=== PATIENT | male | born 1960 | race Caucasian/White ===

== ENCOUNTER → 2018-03-11 06:12 | Outpatient (CLI) | payer OTHER, SELFPAY ==
--- NOTE | 2018-03-11 10:13 | STRESSREP ---
Stress Test Report Date: 03/11/2018 Procedure: Exercise tolerance test/imaging study Indications: Chest pain; CAD; PCI; CABG Consent: Per the patient Procedure: The patient exercised on a Mic protocol for 8 minutes completing Stage II and 2 minutes of Stage III achieving a peak heart rate of 176 bpm (107 % predicted maximal heart rate) with a peak blood pressure 140/76 mmHg and a peak MET capacity of 9 METs. The baseline ECG demonstrated normal sinus rhythm. The peak exercise ECG demonstrated no obvious ECG changes. There were rare PVCs and rare ventricular couplets during exercise and recovery. The functional capacity was considered good. There was no complaint of chest discomfort during exercise or recovery. The examination was discontinued secondary to leg discomfort. Impression: 1. Technically adequate (percent predicted maximal heart rate greater than 85%) exercise tolerance test 2. Peak exercise ECG demonstrated no obvious ECG changes 3. There were rare PVCs and ventricular couplets during exercise and recovery. 4. Nuclear images pending Myocardial perfusion imaging study: Technique: The patient was injected with 11.2 mCi of technetium 99m Cardiolite and subsequently rest SPECT Cardiolite nuclear imaging was obtained in the horizontal long, vertical long, and short axis views. The patient exercised on a Mic protocol for 8 minutes completing Stage II and 2 minutes of Stage III achieving a peak heart rate of 176 bpm (107 % predicted maximal heart rate) with a peak blood pressure 140/76 mmHg and a peak MET capacity of 9 METs. The patient was injected with 33.9 mCi of technetium 99m Cardiolite and subsequently stress SPECT Cardiolite nuclear imaging was obtained in the horizontal long, vertical long, and short axis views. A gated Cardiolite study at peak stress was obtained. Interpretation: Rest and stress SPECT Cardiolite nuclear imaging status post realignment, normalization, and attenuation correction, demonstrates the appearance of a small area of subtle diminished tracer uptake near the apical segments at rest which appear to improve and/or normalize following stress. Similar type findings on the resting and stress polar map images. There is end systolic thickening and brightening.. The gated Cardiolite study demonstrates myocardial thickening and inward wall motion. The reported LVEF is 62 %. Impression: 1. Rest and stress SPECT Cardiolite nuclear imaging demonstrate demonstrate myocardial perfusion changes appearing compatible if doing soft tissue attenuation/artifact with no myocardial perfusion changes consider diagnostic for associated stress-induced myocardial ischemia or previous myocardial injury/infarction. 2. The gated Cardiolite study reports an LVEF of 62 %. This note was generated with [employer] software. It may contain incorrect words, spelling, and punctuation that were not noted in checking the note before signing.
--- NOTE | 2018-03-11 10:23 | STRESSREP_ITS ---
Stress Test Report Date: 03/11/2018 Procedure: Exercise tolerance test/imaging study Indications: Chest pain; CAD; PCI; CABG Consent: Per the patient Procedure: The patient exercised on a Mic protocol for 8 minutes completing Stage II and 2 minutes of Stage III achieving a peak heart rate of 176 bpm (107 % predicted maximal heart rate) with a peak blood pressure 140/76 mmHg and a peak MET capacity of 9 METs. The baseline ECG demonstrated normal sinus rhythm. The peak exercise ECG demonstrated no obvious ECG changes. There were rare PVCs and rare ventricular couplets during exercise and recovery. The functional capacity was considered good. There was no complaint of chest discomfort during exercise or recovery. The examination was discontinued secondary to leg discomfort. Impression: 1. Technically adequate (percent predicted maximal heart rate greater than 85% ) exercise tolerance test 2. Peak exercise ECG demonstrated no obvious ECG changes 3. There were rare PVCs and ventricular couplets during exercise and recovery. 4. Nuclear images pending Myocardial perfusion imaging study: Technique: The patient was injected with 11.2 mCi of technetium 99m Cardiolite and subsequently rest SPECT Cardiolite nuclear imaging was obtained in the horizontal long, vertical long, and short axis views. The patient exercised on a Mic protocol for 8 minutes completing Stage II and 2 minutes of Stage III achieving a peak heart rate of 176 bpm (107 % predicted maximal heart rate) with a peak blood pressure 140/76 mmHg and a peak MET capacity of 9 METs. The patient was injected with 33.9 mCi of technetium 99m Cardiolite and subsequently stress SPECT Cardiolite nuclear imaging was obtained in the horizontal long, vertical long, and short axis views. A gated Cardiolite study at peak stress was obtained. Interpretation: Rest and stress SPECT Cardiolite nuclear imaging status post realignment, normalization, and attenuation correction, demonstrates the appearance of a small area of subtle diminished tracer uptake near the apical segments at rest which appear to improve and/or normalize following stress. Similar type findings on the resting and stress polar map images. There is end systolic thickening and brightening.. The gated Cardiolite study demonstrates myocardial thickening and inward wall motion. The reported LVEF is 62 %. Impression: 1. Rest and stress SPECT Cardiolite nuclear imaging demonstrate demonstrate myocardial perfusion changes appearing compatible if doing soft tissue attenuation/artifact with no myocardial perfusion changes consider diagnostic for associated stress-induced myocardial ischemia or previous myocardial injury/ infarction. 2. The gated Cardiolite study reports an LVEF of 62 %. This note was generated with [employer] software. It may contain incorrect words, spelling, and punctuation that were not noted in checking the note before signing.
== END ==
PROVIDERS: Family Provider Family Medicine; PCP Family Medicine; Visit Provider Nurse Practitioner Family
DX: I10 Essential (primary) hypertension (principal); I25.119 Atherosclerotic heart disease of native coronary artery with unspecified angina pectoris; Z95.5 Presence of coronary angioplasty implant and graft; Z95.1 Presence of aortocoronary bypass graft
CPT/HCPCS: 78452; 93017; A9500; A4216

== ENCOUNTER → 2018-06-04 13:42 | Outpatient (CLI) | payer OTHER, SELFPAY ==
--- NOTE | 2018-06-04 13:46 | RAD_ITS ---
STUDY: X-RAY - SOFT TISSUE NECK REASON FOR EXAM: Male, 57 years old. Stiff neck x 2 months TECHNIQUE: 2 view(s) of the neck were obtained. COMPARISON: None. FINDINGS: Normal visualized nasopharynx, oropharynx, hypopharynx. There are atherosclerotic vascular calcifications. Normal epiglottis. Normal visualized subglottic tracheal air column. Normal prevertebral soft tissue structures. There are degenerative changes of the cervical spine with cervical spondylosis. The soft tissue structures are unremarkable. RAD/Neck for Soft Tissue IMPRESSION: There are degenerative changes of the cervical spine with cervical spondylosis. Electronically Signed: Hayder Mckenna MD at 17:34 EDT , Service support ,
== END ==
PROVIDERS: Family Provider Family Medicine; PCP Family Medicine; Referring Provider Family Medicine; Visit Provider Family Medicine
DX: S16.1XXA Strain of muscle, fascia and tendon at neck level, initial encounter (principal)
CPT/HCPCS: 70360

== ENCOUNTER 2018-08-18 16:30 | Outpatient (RCR) | payer OTHER, SELFPAY ==
--- NOTE | 2018-06-16 17:32 | HP.PTEVAL_ITS ---
Patient's Visit Information SHAZIA JASON is a 57 year old M referred to Physical Therapy by Bradley Esteban with a diagnosis of NECK STRAIN. Date of Evaluation: 06/16/18 Physical Therapist: Robinson Yeung, PT, - Visit Plan Frequency: 2x /Week Duration: 4 Weeks Plan: MANUAL THERAPY STM, MOBS CERVICAL SPINE/THORACIC,POSTURAL EX'S,ICTX 14# - 20# X15MIN - Subjective Subjective: This 57 y/o male presents to physical therapy with neck strain .Patient developed cervical right occiput to right UT. Patient develped incidous onset of cervical pain about 8 weeks .[address] DR did x-rays and recommended PT. Symptoms worese with turning,extension,lifinh. Symptoms better with few adjustments.Denies HALL . Denies parathesia/tingling. Patient denioes nausea,tinnutus ,slight dizziness. Patient symptoms are affected from sleeping. Symptoms affect QOL and job demands. SOCAIL:. VOCATION: [facility] - Pain Right Neck Pain Intensity (Out of 10): 2 Pain Intensity Range: 7 - Objective POSTURE: mild foward posture ,head foward. NEURO: denies parathesia/tingling,reflexes C5-6-7, 3/3. AROM: BUE WFL. MMT: 4/5 grossly. CERVICAL ROM: flexion min loss,extension mod loss,lateral flexion ,rotation mod loss. extension mod loss retraction min loss with pain. PALAPTION: tender UT/OCCIPUT - Special Tests C/S Radiculapathy - Left Upper limb tension test: Negative C/S Radiculapathy - Right Upper limb tension test: Negative C/S Radiculapathy - Left Spurlings: Negative C/S Radiculapathy - Right Spurlings: Positive C/S Radiculapathy - Left Cervical distraction: Negative C/S Radiculapathy - Right Cervical distraction: Negative C/S Radiculapathy - Left Relief test: Negative C/S Radiculapathy - Right Relief test: Negative C/S Radiculapathy - Valsalva: Negative Sharp Kayla: Negative Vertebral Artery Test: Negative Alar Ligament Test: Negative - Goals Goal 1:: Independant with HEP. Goal Time Frame: 4-6 Weeks Goal 2:: Patient to be Independant with posture for ADL'S Goal Time Frame: 4-6 Weeks Goal 3:: Decrease cervical pain by 50% or greater to improve function with turning cervical spine. Goal Time Frame: 4-6 Weeks Goal 4:: Patient to improve cervical ROM fotr function of recovery with less pain Goal Time Frame: 4-6 Weeks Goal 5:: Patient to improve neck JUSTINA by 5 points or greater to improve function with QOL Goal Time Frame: 4-6 Weeks - Rehabilitation Potential Physical Therapy Diagnosis: This patient appears to have cervical lateral stenosis along with derrangement with pain with motion all planes ,affects ADLS and job demands,responded well with traction of c-spine thus benifit from skilled PT Rehabilitation Potential: Good - Anticipated Interventions Patient/Client Instruction: Educate patient on: Condition, Plan of Care For the Purpose of:: To decrease pain, To increase ROM, To improve muscle performance and motor function, To increase tolerance to activity/condition/position, To improve ability of physical actions for home/community/work/leisure, To improve health of tissue, To decrease soft tissue restriction, To increase flexibility/ROM, To improve ability to perform tasks related to life management Therapeutic Exercise to Include: Strength training, Postural training, Flexibilty training, Active ROM, Diana Exercises For the Purpose of:: To decrease pain, To increase ROM, To improve muscle performance and motor function, To decrease level of supervision to perform tasks, To improve gait and locomotor functions, To improve health of tissue, To decrease soft tissue restriction, To increase flexibility/ROM, To improve ability to perform tasks related to life management Manual Therapy Techniques to Include: Mobilization, Soft tissue mobilization Comment: CERVICAL SPINE For the Purpose of:: To decrease pain, To increase ROM, To improve nutrient delivery to tissue, To improve health of tissue, To decrease soft tissue re striction, To increase flexibility/ROM TENS: Yes IF ES: Yes Cryotherapy (ice pack, ice massage): Yes Thermo therapy (hot pack): Yes Ultrasound (thermal/non thermal): Yes For the Purpose of:: To decrease pain, To increase ROM, To improve nutrient deli very to tissue, To increase oxygenation perfusion, To improve health of tissue, To decrease soft tissue restriction Thank you for the opportunity to evaluate your patient. For Medicare and Medicare HMO plans, please review the plan of care and approve it. It will need to be FAXED BACK to us at [phone] for Medicare purposes. Please let me know if there are questions or concerns regarding this plan of care. Physician Signature: Date:
--- NOTE | 2018-08-18 17:11 | HP.PTDCSUM ---
HP - PT D/C Summary It has been my pleasure to treat SHAZIA JASON under orders from Bradley Esteban, for the diagnosis of NECK STRAIN for a total of 12 visit(s). Discharge Date: 08/18/18 Please see the following information for a summary of their discharge status. - Subjective Subjective: Doing bettt just stiffness - Pain Right Neck Pain Intensity (Out of 10): 1 - Overall Improvement % Improvement: 60 - Objective Objective/Function: POSTURE: MILD FOWARD HEAD. NEURO: INTACT. MMT: 5/5 BUE. CERVICAL ROM: FKLEXION MIN LOSS,LATERAL FLEXION /ROTATION ,MIN ,LOSS,EXTENSION MIN/MOD ;LOSS - Goals Goal 1:: Independant with HEP. Goal Progress: Goal Met Goal 2:: Patient to be Independant with posture for ADL'S Goal Progress: Goal Met Goal 3:: Decrease cervical pain by 50% or greater to improve function with turning cervical spine. Goal Progress: Goal Met Goal 4:: Patient to improve cervical ROM fotr function of recovery with less pain Goal Progress: Goal Met Goal 5:: Patient to improve neck JUSTINA by 5 points or greater to improve function with QOL Goal Progress: Goal Met - Plan Plan: D/C - D/C Information If there are questions or concerns regarding this patient's physical therapy, please feel free to call me at [phone]. Thank you for the referral of this patient. Sincerely, Robinson Yeung, PT,
== END 2018-08-18 19:00 | disposition home or self-care (01) ==
LOC: PT 16:30
PROVIDERS: Family Provider Family Medicine; PCP Family Medicine; Referring Provider Family Medicine; Visit Provider Family Medicine
DX: S16.1XXD Strain of muscle, fascia and tendon at neck level, subsequent encounter (principal)
CPT/HCPCS: 97012; 97035; 97162; 97530

== ENCOUNTER → 2019-02-11 | Outpatient (CLI) | payer OTHER, SELFPAY ==
[2019-02-11 10:05] VITALS: BMI 25.4
[2019-02-11 11:29] LABS: AST(SGOT) 34 U/L (15-37); Alanine Aminotransfer ALT/SGPT 52 U/L (16-61); Albumin, Serum 3.8 g/dL (3.2-5.0); Alkaline Phosphatase 83 U/L (45-117); Bilirubin, Direct 0.16 mg/dL (0.00-0.30); Cholesterol 186 mg/dL (200); Globulin 4.1 g/dL (2.2-4.2); High Density Lipoprotein 57 mg/dL; Protein, Total 7.9 g/dL (6.4-8.2); Triglycerides 68 mg/dL; Very Low Density Lipoprotein 14 mg/dL (5-40)
== END | disposition home or self-care (01) ==
LOC: LAB 10:45
PROVIDERS: Nurse Practitioner Family; Family Provider Family Medicine; PCP Family Medicine; Referring Provider Physician Assistant Medical; Visit Provider Physician Assistant Medical
DX: E78.5 Hyperlipidemia, unspecified (principal); Z79.899 Other long term (current) drug therapy; I25.10 Atherosclerotic heart disease of native coronary artery without angina pectoris; Z95.1 Presence of aortocoronary bypass graft; Z95.5 Presence of coronary angioplasty implant and graft
CPT/HCPCS: 36415; 80061; 80076

== ENCOUNTER → 2019-10-12 06:03 | Outpatient (CLI) | payer OTHER, SELFPAY ==
[2019-02-11 10:05] VITALS: BMI 25.4
[2019-10-12 08:10] LABS: Anion Gap 5 (5-15); BUN 22 mg/dL (7-18); BUN/Creat Ratio 23.6 RATIO (10-20); Calcium,Total 9.2 mg/dL (8.5-10.1); Chloride 108 mmol/L (98-107); Cholesterol 175 mg/dL (200); Creatinine, Serum 0.93 mg/dL (0.70-1.30); EST Glomerular Filtration Rate 89 mL/min (>60); Est Glom Filt Rate - Afr Amer 107 mL/min (>60); Glucose 89 mg/dL (74-106); High Density Lipoprotein 45 mg/dL; PSA,Total - Annual Screen 3.14 ng/mL (0.00-4.00); Potassium 4.2 mmol/L (3.5-5.1); Sodium Level 140 mmol/L (136-145); Triglycerides 114 mg/dL; Very Low Density Lipoprotein 23 mg/dL (5-40)
[2019-10-12 09:22] LABS: Vitamin D,25 Hydroxy 20.6 ng/mL (29.95-100.01)
== END ==
PROVIDERS: PCP Family Medicine; Referring Provider Family Medicine; Visit Provider Family Medicine
DX: Z00.00 Encounter for general adult medical examination without abnormal findings (principal)
CPT/HCPCS: 36415; 80048; 80061; 82306; 84153; G0103

== ENCOUNTER → 2020-11-09 10:15 | Outpatient (CLI) | payer OTHER, SELFPAY ==
[2019-10-13 13:14] VITALS: BMI 25.7
[2020-11-09 12:26] LABS: AST(SGOT) 25 U/L (15-37); Alanine Aminotransfer ALT/SGPT 50 U/L (16-61); Albumin, Serum 3.7 g/dL (3.2-5.0); Alkaline Phosphatase 84 U/L (45-117); Anion Gap 4 (5-15); BUN 21 mg/dL (7-18); BUN/Creat Ratio 20.8 RATIO (10-20); Calcium,Total 9.3 mg/dL (8.5-10.1); Chloride 106 mmol/L (98-107); Cholesterol 177 mg/dL (200); Creatinine, Serum 1.01 mg/dL (0.70-1.30); EST Glomerular Filtration Rate 80 mL/min (>60); Est Glom Filt Rate - Afr Amer 97 mL/min (>60); Globulin 3.7 g/dL (2.2-4.2); Glucose 90 mg/dL (74-106); High Density Lipoprotein 50 mg/dL; Potassium 4.5 mmol/L (3.5-5.1); Protein, Total 7.4 g/dL (6.4-8.2); Sodium Level 139 mmol/L (136-145); Triglycerides 75 mg/dL; Very Low Density Lipoprotein 15 mg/dL (5-40)
== END ==
PROVIDERS: PCP Family Medicine; Referring Provider Family Medicine; Visit Provider Family Medicine
DX: E78.5 Hyperlipidemia, unspecified (principal)
CPT/HCPCS: 36415; 80053; 80061

== ENCOUNTER → 2021-04-01 10:34 | Outpatient (CLI) | payer OTHER, SELFPAY ==
[2020-12-28 11:18] VITALS: BMI 25.8
--- NOTE | 2021-04-01 10:37 | RAD_ITS ---
STUDY: X-RAY - ABDOMEN/PELVIS REASON FOR EXAM: Male, 60 years old. ABD PAIN TECHNIQUE: AP supine and upright views of the abdomen and pelvis. COMPARISON: None. FINDINGS: Normal visualized lung bases. There is a moderate amount of colonic fecal material. There is no demonstrated free abdominal air. The visualized liver, spleen and kidneys are grossly normal in size and morphology. Normal soft tissue structures. There are diffuse degenerative changes of the visualized lumbar spine. Mild degree of dextro convex scoliosis. 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 Moderate amount of fecal material is seen in the colon. Electronically Signed: Yair Pillai MD at 22:02 EDT , Service support ,
== END ==
PROVIDERS: PCP Family Medicine; Referring Provider Family Medicine; Visit Provider Family Medicine
DX: R10.9 Unspecified abdominal pain (principal)
CPT/HCPCS: 74018

== ENCOUNTER → 2021-05-10 10:28 | Outpatient (CLI) | payer OTHER, SELFPAY ==
[2021-05-10 12:31] LABS: Anion Gap 3 (5-15); BUN 22 mg/dL (7-18); BUN/Creat Ratio 24.9 RATIO (10-20); Calcium,Total 9.2 mg/dL (8.5-10.1); Chloride 106 mmol/L (98-107); Cholesterol 174 mg/dL (200); Creatinine, Serum 0.88 mg/dL (0.70-1.30); EST Glomerular Filtration Rate 94 mL/min (>60); Est Glom Filt Rate - Afr Amer 113 mL/min (>60); Glucose 95 mg/dL (74-106); High Density Lipoprotein 55 mg/dL; PSA,Total - Annual Screen 3.75 ng/mL (0.00-4.00); Potassium 4.5 mmol/L (3.5-5.1); Sodium Level 139 mmol/L (136-145); Triglycerides 68 mg/dL; Very Low Density Lipoprotein 14 mg/dL (5-40)
== END ==
PROVIDERS: PCP Family Medicine; Referring Provider Family Medicine; Visit Provider Family Medicine
DX: Z00.00 Encounter for general adult medical examination without abnormal findings (principal); E78.5 Hyperlipidemia, unspecified
CPT/HCPCS: 36415; 80048; 80061; 84153; G0103

== ENCOUNTER → 2022-11-14 | Outpatient (CLI) | payer OTHER, SELFPAY ==
[2022-11-14 12:48] LABS: ALB/GLOB Ratio 1.1 RATIO (0.9-2.4); AST(SGOT) 30 U/L (15-37); Alanine Aminotransfer ALT/SGPT 57 U/L (16-61); Albumin, Serum 3.8 g/dL (3.2-5.0); Alkaline Phosphatase 80 U/L (45-117); Anion Gap 9 (5-15); BUN 21 mg/dL (7-18); BUN/Creat Ratio 23.1 RATIO (10-20); Calcium,Total 9.3 mg/dL (8.5-10.1); Chloride 103 mmol/L (98-107); Cholesterol 171 mg/dL (200); Creatinine, Serum 0.91 mg/dL (0.70-1.30); EST Glomerular Filtration Rate 90 mL/min (>60); Est Glom Filt Rate - Afr Amer 109 mL/min (>60); Globulin 3.6 g/dL (2.2-4.2); Glucose 86 mg/dL (74-106); High Density Lipoprotein 50 mg/dL; Potassium 4.5 mmol/L (3.5-5.1); Protein, Total 7.4 g/dL (6.4-8.2); Sodium Level 140 mmol/L (136-145); Triglycerides 72 mg/dL; Very Low Density Lipoprotein 14 mg/dL (5-40)
== END | disposition home or self-care (01) ==
LOC: MTLAB 10:27
PROVIDERS: PCP Family Medicine; Referring Provider Family Medicine; Visit Provider Family Medicine
DX: E78.5 Hyperlipidemia, unspecified (principal)
CPT/HCPCS: 36415; 80053; 80061

== ENCOUNTER → 2023-02-27 | Outpatient (CLI) | payer OTHER, SELFPAY ==
--- NOTE | 2023-02-27 10:26 | RAD_ITS ---
STUDY: X-RAY - ACUTE ABDOMINAL SERIES REASON FOR EXAM: Male, 62 years old. LEFT LOWER ABDOMINAL PAIN, HX IBS TECHNIQUE: Single view of the chest. Supine, and erect view(s) of the abdomen were obtained. COMPARISON: Abdominal x-ray dated April 01, 2021 FINDINGS: The lungs are clear and expanded. There is no demonstrated pleural abnormality. Sternal cerclage wires and vascular clips are present from a prior sternotomy and coronary artery bypass graft procedure (CABG). Normal heart size. Normal mediastinum and angela. Normal visualized pulmonary arteries. Normal visualized aortic arch and descending thoracic aorta. There are diffuse degenerative changes of the visualized thoracic spine. Normal visualized ribs, clavicles, and shoulders. There is a non-specific bowel gas pattern. The soft tissue structures of the abdomen and pelvis are unremarkable. Normal visualized osseous structures. RAD/Acute Abdomen Inc Chest IMPRESSION: Unremarkable x-ray examination of the chest, abdomen, and pelvis. Electronically Signed: Ammon Rodriguez MD at 12:02 EDT ,
== END | disposition home or self-care (01) ==
LOC: MTRAD 10:23
PROVIDERS: PCP Family Medicine; Referring Provider Family Medicine; Visit Provider Family Medicine
DX: R10.9 Unspecified abdominal pain (principal)
CPT/HCPCS: 74022

== ENCOUNTER → 2023-05-04 | Outpatient (CLI) | payer OTHER, SELFPAY ==
--- NOTE | 2023-05-04 14:00 | CT_ITS ---
STUDY: CT ABDOMEN AND PELVIS WITH CONTRAST REASON FOR EXAM: Male, 62 years old. DIVERTICULITIS OF LARGE INTESTINE WITHOUT PERFORAT RADIATION DOSAGE (If Supplied By Facility): CTDIvol = ( 10.47 ) mGy, DLP = ( 772.88 ) mGycm TECHNIQUE: Oral and amp; IV Readi-CAT and amp; 100mL Isovue-300 was administered. Transaxial images were obtained from the dome of the diaphragm to the symphysis pubis in the arterial, nephrographic and excretory phases. Multiplanar coronal and sagittal images were reformatted. Individualized Dose Optimization Techniques Were Used For This CT. COMPARISON: No prior examinations are available for comparison. FINDINGS: The visualized lung bases are unremarkable. Normal heart size. Status post median sternotomy. Coronary calcifications. Normal liver. Normal gallbladder and extrahepatic biliary system. Normal spleen. Normal pancreas. Normal bilateral adrenal glands. Probable small hiatal hernia. Normal in caliber small bowel loops. Sigmoid diverticulosis. No evidence of acute diverticulitis. The appendix is visualized and appears normal. There is diffuse atherosclerotic calcification of the abdominal aorta, without a demonstrated aneurysm. No retroperitoneal adenopathy. Nonspecific mild bilateral perinephric stranding. No evidence of hydronephrosis. Normal urinary bladder. Slightly prominent prostate. Normal abdominal wall. There are diffuse degenerative changes of the visualized lumbar spine. CT/Abdomen/Pelvis WITH Contrast IMPRESSION: 1. Diverticulosis without evidence of acute diverticulitis. 2. No focal acute inflammatory process. Electronically Signed: Kaden Lima MD at 23:11 EDT ,
[2023-05-04 14:17] LABS: EGFR FINGERSTICK > 60.0000 mL/min (>60)
== END | disposition home or self-care (01) ==
LOC: CT 13:43
PROVIDERS: PCP Family Medicine; Referring Provider Internal Medicine; Visit Provider Internal Medicine
DX: K57.32 Diverticulitis of large intestine without perforation or abscess without bleeding (principal)
CPT/HCPCS: 74177; Q9967

== ENCOUNTER → 2023-10-16 | Outpatient (CLI) | payer OTHER, SELFPAY ==
--- NOTE | 2023-10-16 08:16 | CT_ITS ---
CT RIGHT LOWER EXTREMITY WITH 3-D IMAGING CLINICAL INDICATION: PAIN IN RIGHT KNEE, ONEIL RIGHT KNEE TECHNIQUE: Axial CT images of the right lower extremity (including right hip and right knee) was performed without IV contrast material. Coronal and sagittal reformats were provided. RADIATION DOSAGE (If Supplied By Facility): CTDIvol = ( 18.61 ) mGy, DLP = ( 1332.98 ) mGycm COMPARISON: No relevant prior comparison study available. FINDINGS: Bones: Unremarkable right hip joint. There are enthesopathic cystic changes in the distal femur adjacent to the inferior condylar notch. There is mild tricompartment degenerative arthrosis of the right knee with mild marginal osteophyte formation. Osseous structures are intact without evidence of fracture or dislocation. No lytic or blastic osseous masses. Soft Tissues: There are atherosclerotic calcifications. The deep soft tissue structures are unremarkable. The superficial soft tissues are unremarkable without evidence of edema, hematoma, or foreign body. CT/Extremity Lower without Contra IMPRESSION: Mild tricompartment degenerative arthrosis of the right knee with mild marginal osteophyte formation. Electronically Signed: Med Rizo MD at 9:07 EST ,
--- OUTSIDE RECORDS SUMMARY | 2023-10-16 08:47 | XMS RPT_ITS | CCD ---
Author Name Unknown Address [address] [place] [address] Organization [facility] Care Team Providers Care Music Teacher Name Role Phone Zoraida Bernal Unavailable Unavailable Sp Espinoza Unavailable Unavailable Zoraida Bernal Unavailable Unavailable Bradley Esteban Unavailable Dr. Bradley Esteban Primary Care Unavail Dr. Bradley Garcia Referring Unavail able MIKE WRIGHT Attending Unavailable Allergies Allergy Classification Reported Allergen(s) Allergy Type Date of Onset Reaction(s) Facility (3 sources) NKDA drug allergy 06-03-2012 [facility] Work Phone: (3 sources) NKA drug allergy 06-03-2012 [facility] Work Phone: Medications Completed/Discontinued Medications Medication Drug Class(es) Dates Sig (Normalized) Sig (Original) amLODIPine 5 mg oral tablet (3 sources) Dihydropyridine Calcium Channel [place] Start: 02-20-2011 take 1 tablet by mouth once daily AMLODIPINE BESYLATE 5 MG TABS One tablet by mouth daily AMLODIPINE BESYLATE [id number] Yanna Hays PA-C aspirin 81 mg oral strip (9 sources) Nonsteroidal Anti-inflammatory Drug Start: 12-19-2011 take 1 tablet by mouth once daily ASPIRIN 81 MG TABS One tablet by mouth daily ASPIRIN [id number] Bradley Schrader MD Problems Active Problems Problem Classification Problem Date Documented Da te Episodic/Chronic Cardiac dysrhythmias (3 sources) Paroxysmal atrial fibrillation; Translations: [Paroxysmal atrial fibrillation] Onset: 02-20-2011 02-20-2011 Chronic Coronary atherosclerosis and other heart disease (6 sources) Coronary atherosclerosis; Translations: [Angina pectoris] Onset: 02-20-2011 02-20-2011 Chronic Disorders of lipid metabolism (3 sources) Hyperlipidemia; Translations: [Hyperlipidemia, unspecified] Onset: 02-20-2011 02-20-2011 Chronic Diverticulosis and diverticulitis (1 source) Diverticulitis of colon; Translations: [Diverticulitis of colon (without mention of hemorrhage)] Chronic Past or Other Problems Problem Classification Problem Date Documented Da te Episodic/Chronic Cardiac dysrhythmias (3 sources) Palpitations; Translations: [Palpitations] Onset: 02-20-2011 02-20-2011 Episodic Coronary atherosclerosis and other heart disease (6 sources) Presence of aortocoronary bypass graft; Translations: [Coronary angioplasty status] Onset: 02-20-2011 02-20-2011 Episodic Fluid and electrolyte disorders (3 sources) Hyperkalemia; Translations: [Hyperkalemia] Onset: 04-01-2011 04-01-2011 Episodic Nonspecific chest pain (3 sources) Chest pain, unspecified; Translations: [Chest pain, unspecified] Onset: 02-20-2011 02-20-2011 Episodic Other aftercare (3 sources) Other termite treater helper (current) drug therapy; Translations: [Other termite treater helper (current) drug therapy] Onset: 02-20-2011 02-20-2011 Episodic Other circulatory disease (3 sources) Abnormal result of cardiovascular function study, unspecified; Translations: [Abnormal result of cardiovascular function study, unspecified] Onset: 02-20-2011 02-20-2011 Episodic Other nutritional; endocrine; and metabolic disorders (3 sources) Body mass index (BMI) 25.0-25.9, adult; Translations: [Body mass index (BMI) 25.0-25.9, adult] Onset: 06-27-2014 06-27-2014 Episodic Results Test Name Value Interpretation Reference Range Facil ity Vital Signs Date Time Vital Sign Value Performing Clinician Faci lity 04-16-2023 11:01-0400 Body height 177.8 cm Bradley Esteban [facility] Phone[facility] Work Phone: 04-16-2023 11:01-0400 Body mass index (BMI) [Ratio] 25.58 kg/m2 Bradley Esteban Work Phone: [facility] Work Phone: 04-16-2023 11:01-0400 Body surface area Derived from formula 1.99 m2 Bradley Esteban Work Phone: [facility] Work Phone: 04-16-2023 11:01-0400 Body weight 80.85 kg Bradley Esteban Work Phone: [facility] Work Phone: 04-16-2023 11:01-0400 Diastolic blood pressure 78 mm[Hg] Bradley Esteban Work Phone: [facility] Work Phone: 04-16-2023 11:01-0400 Heart rate 57 /min Bradley Esteban Work Phone: [facility] Work Phone: 04-16-2023 11:01-0400 Systolic blood pressure 118 mm[Hg] Bradley Esteban Work Phone: [facility] Work Phone: 02-20-2017 08:54-0400 BMI (Body Mass Index) 25.54 kg/m2 Zoraida Dolores [facility] Work Phone: 02-20-2017 08:54-0400 BP Diastolic 72 mm[Hg] Zoraida Marthey [facility] Work Phone: 02-20-2017 08:54-0400 BP Systolic 112 mm[Hg] Zoraida Marthey [facility] Work Phone: 02-20-2017 08:54-0400 Height 177.8 cm Zoraida Marthey [facility] Work Phone: 02-20-2017 08:54-0400 Pulse (Heart Rate) 72 /min Zoraida Marthey [facility] Work Phone: 02-20-2017 08:54-0400 Respiratory Rate 16 /min [facility] Work Phone: 02-20-2017 08:54-0400 Weight 80.74 kg Zoraida Bernal [facility] Work Phone: 08-15-2016 10:13-0500 BMI (Body Mass Index) 25.82 kg/m2 [facility] Work Phone: 08-15-2016 10:13-0500 BP Diastolic 72 mm[Hg] Harumi DeFinis [facility] Work Phone: 08-15-2016 10:13-0500 BP Systolic 108 mm[Hg] Asifumi DeFinis [facility] Work Phone: 08-15-2016 10:13-0500 BSA (Body Surface Area) 2 m2 Sp DeFinis [facility] Work Phone: 08-15-2016 10:13-0500 Pulse (Heart Rate) 84 /min Sp DeFinis [facility] Work Phone: 08-15-2016 10:13-0500 Respiratory Rate 16 /min Sp DeFinis [facility] Work Phone: 08-15-2016 10:13-0500 Weight 81.65 kg Sp DeFinis [facility] Work Phone: 12-19-2011 13:18-0400 Height 177.8 cm Sp DeFinis [facility] Work Phone: Encounters Encounter Date Encounter Type Care Provider Facility Start: 04-16-2023 Office outpatient ne w 45 minutes Bradley Esteban Work Phone: [facility] Work Phone: Start: 04-16-[address] Bradley Esteban Facility:[id number] Procedures Date Procedure Procedure Detail Performing Clinician Start: 12-01-2016 End: 01-02-2017 *Hepatic Function Panel Bradley Schrader MD Start: 12-01-2016 End: 01-02-2017 Lipid panel [AGGREGATE] Bradley Schrader MD Start: 08-25-2016 End: 09-02-2016 *Hepatic Function Panel Bradley Schrader MD Start: 08-15-2016 End: 08-15-2016 Follow Up Appt 9 months Bradley Schrader MD Start: 08-15-2016 End: 08-15-2016 PFM Bradley Schrader MD Start: 02-25-2016 End: 07-16-2016 *Hepatic Function Panel Bradley Schrader MD Start: 02-25-2016 End: 07-16-2016 Lipid panel [AGGREGATE] Bradley Schrader MD Start: 12-07-2015 End: 12-07-2015 Follow Up Appt 6 months Bradley Scrhader MD Start: 12-07-2015 End: 12-07-2015 PFM Bradley Schrader MD Start: 08-16-2015 End: 08-24-2015 *Hepatic Function Panel Bradley Schrader MD Start: 08-16-2015 End: 08-24-2015 Lipid panel [AGGREGATE] Bradley Schrader MD Start: 06-01-2015 End: 06-02-2015 Documentation of current medications Bradley Schrader MD Start: 06-01-2015 End: 06-01-2015 Follow Up Appt 6 months Bradley Schrader MD Start: 06-01-2015 End: 06-01-2015 PFM Bradley Schrader MD Start: 03-28-2015 End: 05-16-2015 *Hepatic Function Panel Bradley Schrader MD Start: 03-28-2015 End: 05-16-2015 Lipid panel [AGGREGATE] Bradley Schrader MD Start: 12-06-2014 End: 12-27-2014 *Hepatic Function Panel Bradley Schrader MD Start: 12-06-2014 End: 12-27-2014 Lipid panel [AGGREGATE] Bradley Schrader MD Start: 12-01-2014 End: 12-27-2014 *Hepatic Function Panel Bradley Schrader MD Start: 12-01-2014 End: 12-02-2014 Documentation of current medications Bradley Schrader MD Start: 12-01-2014 End: 12-27-2014 Lipid panel [AGGREGATE] Bradley Schrader MD Start: 06-27-2014 End: 06-27-2014 Electrocardiogram, complete Yanna Burton PA-C Work Phone: Start: 06-27-2014 End: 06-27-2014 Follow Up Appt Other aYnna nichols PA-C Work Phone: Start: 06-27-2014 End: 06-30-2014 Nuclear stress test -exercise Yanna Hays PA-C Work Phone: Start: 06-02-2014 End: 06-02-2014 Electrocardiogram, complete Yanna Burton PA-C Work Phone: Start: 12-06-2013 End: 06-02-2014 *Hepatic Function Panel Bradley Schrader MD Start: 12-06-2013 End: 06-02-2014 Lipid panel [AGGREGATE] Bradley Schrader MD Start: 12-02-2013 End: 12-02-2013 Follow Up Appt 6 months Bradley Schrader MD Start: 12-02-2013 End: 12-02-2013 MMM Bradley Schrader MD Start: 06-10-2013 End: 06-10-2013 Follow Up Appt 6 months Bradley Schrader MD Start: 06-10-2013 End: 06-10-2013 PFM Bradley Schrader MD Start: 06-07-2013 End: 10-07-2013 Lipid panel [AGGREGATE] Bradley Schrader MD Start: 06-05-2013 End: 06-05-2013 *Hepatic Function Panel Bradley Schrader MD Start: 12-24-2012 End: 12-30-2012 *Hepatic Function Panel Bradley Schrader MD Start: 12-24-2012 End: 12-24-2012 Follow Up Appt 6 months Bradley Schrader MD Start: 12-24-2012 End: 12-30-2012 Lipid panel [AGGREGATE] Bradley Schrader MD Start: 12-24-2012 End: 12-24-2012 PFM Bradley Schrader MD Start: 06-03-2012 End: 12-24-2012 Chest x-ray Bradley Schrader MD Start: 06-03-2012 End: 06-03-2012 Electrocardiogram, complete Bradley huizar MD Start: 06-03-2012 End: 12-24-2012 Follow Up Appt 6 months Bradley Schrader MD Start: 06-03-2012 End: 12-24-2012 Nuclear stress test -exercise Bradley Schrader MD Start: 12-19-2011 End: 12-24-2012 Follow Up Appt 6 months Bradley Schrader MD Insertion of arterial stent Bradley Esteban Work Phone: [facility] on heart Bradley rubio Work Phone: Plan of Treatment Date Care Activity Detail Author Start: 07-03-2017 End: 01-05-2017 *Hepatic Function Panel *Hepatic Function Panel [facility] Work Phone: Start: 07-03-2017 End: 01-05-2017 Lipid panel [AGGREGATE] *Lipid Profile CC PCP [facility] Work Phone: Start: 02-20-2017 End: 02-20-2017 Appointment Appointment [facility] Work Phone: Start: 02-20-2017 End: 02-20-2017 Appointment Appointment [facility] Work Phone: Start: 02-20-2017 End: 02-20-2017 Follow Up Appt 6 months Follow Up Appt 6 months [facility] Work Phone: Start: 02-20-2017 End: 02-20-2017 PFM PFM [facility] Work Phone: Start: 12-01-2016 End: 09-04-2016 *Hepatic Function Panel *Hepatic Function Panel [facility] Work Phone: Start: 12-01-2016 End: 09-04-2016 Lipid panel [AGGREGATE] *Lipid Profile CC PCP [facility] Work Phone: Start: 08-25-2016 End: 09-02-2016 *Hepatic Function Panel *Hepatic Function Panel [facility] Work Phone: Start: 08-15-2016 End: 08-15-2016 Follow Up Appt 9 months Follow Up Appt 9 months [facility] Work Phone: Start: 08-15-2016 End: 08-15-2016 PFM PFM [facility] Work Phone: Start: 02-25-2016 End: 07-16-2016 *Hepatic Function Panel *Hepatic Function Panel [facility] Work Phone: Start: 02-25-2016 End: 07-16-2016 Lipid panel [AGGREGATE] *Lipid Profile CC PCP [facility] Work Phone: Start: 12-07-2015 End: 12-31-2015 Echocardiography Echocardiogram (complete) [facility] Work Phone: Start: 12-07-2015 End: 12-07-2015 Follow Up Appt 6 months Follow Up Appt 6 months [facility] Work Phone: Start: 12-07-2015 End: 12-07-2015 PFM PFM [facility] Work Phone: Start: 08-16-2015 End: 08-24-2015 *Hepatic Function Panel *Hepatic Function Panel [facility] Work Phone: Start: 08-16-2015 End: 08-24-2015 Lipid panel [AGGREGATE] *Lipid Profile CC PCP [facility] Work Phone: Start: 06-01-2015 End: 06-01-2015 Follow Up Appt 6 months Follow Up Appt 6 months [facility] Work Phone: Start: 06-01-2015 End: 06-01-2015 PFM PFM [facility] Work Phone: Start: 03-28-2015 End: 05-16-2015 *Hepatic Function Panel *Hepatic Function Panel [facility] Work Phone: Start: 03-28-2015 End: 05-16-2015 Lipid panel [AGGREGATE] *Lipid Profile CC PCP [facility] Work Phone: Start: 12-06-2014 End: 12-27-2014 *Hepatic Function Panel *Hepatic Function Panel [facility] Work Phone: Start: 12-06-2014 End: 12-27-2014 Lipid panel [AGGREGATE] *Lipid Profile CC PCP [facility] Work Phone: Start: 12-01-2014 End: 12-27-2014 *Hepatic Function Panel *Hepatic Function Panel [facility] Work Phone: Start: 12-01-2014 End: 12-01-2014 Follow Up Appt 6 months Follow Up Appt 6 months [facility] Work Phone: Start: 12-01-2014 End: 12-01-2014 Follow Up Appt Other Follow Up Appt Other [facility] Work Phone: Start: 12-01-2014 End: 12-27-2014 Lipid panel [AGGREGATE] *Lipid Profile CC PCP [facility] Work Phone: Start: 12-01-2014 End: 12-01-2014 PFM PFM [facility] Work Phone: Start: 06-27-2014 End: 06-27-2014 Electrocardiogram, complete EKG (In office) [facility] Work Phone: Start: 06-27-2014 End: 06-27-2014 Follow Up Appt Other Follow Up Appt Other [facility] Work Phone: Start: 06-27-2014 End: 06-27-2014 Nuclear stress test -exercise Nuclear stress test -exercise [facility] Work Phone: Start: 06-02-2014 End: 06-02-2014 Electrocardiogram, complete EKG (In office) [facility] Work Phone: Start: 06-02-2014 End: 06-02-2014 Follow Up Appt 6 months Follow Up Appt 6 months [facility] Work Phone: Start: 06-02-2014 End: 06-02-2014 PFM PFM [facility] Work Phone: Start: 12-06-2013 End: 06-02-2014 *Hepatic Function Panel *Hepatic Function Panel [facility] Work Phone: Start: 12-06-2013 End: 06-02-2014 Lipid panel [AGGREGATE] *Lipid Profile CC PCP [facility] Work Phone: Start: 12-02-2013 End: 12-02-2013 Follow Up Appt 6 months Follow Up Appt 6 months [facility] Work Phone: Start: 12-02-2013 End: 12-02-2013 MMM MMM [facility] Work Phone: Start: 06-10-2013 End: 06-10-2013 Follow Up Appt 6 months Follow Up Appt 6 months [facility] Work Phone: Start: 06-10-2013 End: 06-10-2013 PFM PFM [facility] Work Phone: Start: 06-07-2013 End: 06-05-2013 *Hepatic Function Panel *Hepatic Function Panel [facility] Work Phone: Start: 06-07-2013 End: 10-07-2013 Lipid panel [AGGREGATE] *Lipid Profile [facility] Work Phone: Start: 12-24-2012 End: 12-30-2012 *Hepatic Function Panel *Hepatic Function Panel [facility] Work Phone: Start: 12-24-2012 End: 12-24-2012 Follow Up Appt 6 months Follow Up Appt 6 months [facility] Work Phone: Start: 12-24-2012 End: 12-30-2012 Lipid panel [AGGREGATE] *Lipid Profile [facility] Work Phone: Start: 12-24-2012 End: 12-24-2012 PFM PFM [facility] Work Phone: Start: 06-03-2012 End: 12-24-2012 Chest x-ray X-Ray, Chest, PA & Lateral [facility] Work Phone: Start: 06-03-2012 End: 06-03-2012 Electrocardiogram, complete EKG (In office) [facility] Work Phone: Start: 06-03-2012 End: 06-03-2012 Follow Up Appt 6 months Follow Up Appt 6 months [facility] Work Phone: Start: 06-03-2012 End: 06-03-2012 Nuclear stress test -exercise Nuclear stress test -exercise [facility] Work Phone: Start: 12-19-2011 End: 12-24-2012 Follow Up Appt 6 months Follow Up Appt 6 months [facility] Work Phone: Patient Education [facility] Work Phone: Payers Date Payer Category Payer Unknown [id number] Unknown [employer] Private [employer] Insurance [id number] Social History Date Type Detail Facility Non-smoker Non-smoker [facility] [id number] Work Phone: History of Present illness Narrative 04-16-2013 Note Date & Type Note Facility 04-16-2013 History of Present illness Narrative Manuel is a pleasant 62-year-old male who is self-referred for bowel problems. He states he underwent colonoscopy approximately 7 to [address] Rita Fernandez was told he had diverticular disease. Proximately 5 years ago he developed pain in his periumbilical left lower quadrant pain associate with low-grade fever and made it painful or difficult to pass stool and gas. He saw his family doctor plain x-rays were performed at that time showed no obstruction was treated for presumed diverticulitis with antibiotics. He now states he will have 2-3 episodes of this yearly he can identify no prodromal symptoms such as diarrhea constipation change in diet he believes he may be more physically active at work with lifting or really wrenching on something and then the symptoms will begin within 24 hours. During that time symptoms are always the same with pain is left lower quadrant low-grade fever and increasing pain with passage of stool and gas. All episodes resolved within 48 hours on oral antibiotics.He has not had any imaging studies or repeat colonoscopy. He denies any rectal bleeding. He does have a paternal uncle who of colon cancer in his 80s. [facility] [address] Work Phone: Chief Complaint NPV for IBS. Pt c/o extreme abdominal pain, with constipation. He has not tried any fiber, stool softeners, or laxatives when this occurs. He states his pain can range anywhere from a 2-3 up to a 9. Denies nausea or vomiting. He states when he has an episode it can last anywhere from 7-8 days. Family History No Family History Records FoundUnknown Family Member Name Dates Details Family history of malignant neoplasm of colon: Uncle(V16.0, Z80.0) Status:Active Summary Purpose Advance Directives No Advanced Directives Records FoundNo Advanced Directives Records Found Additional Source Comments (unrecognized sect ion and content) No Status Records FoundNo Status Records Found INFORMATION SOURCE (unrecogn ized section and content) DATE CREATED AUTHOR AUTHOR'S KAREEM NARAYAN 04/17/2023 [facility] FOR RECORDS PERTAINING TO PATIENTS WHO ARE OR HAVE BEEN ENROLLED IN A CHEMICAL DEPENDENCY/SUBSTANCEABUSE PROGRAM, SOME INFORMATION MAY BE OMITTED. This clinical summary was aggregated from multiple sources. Caution should be exercised in using it in the provision of clinical care. This summary normalizes information from multiple sources, and as a consequence, information in this document may materially change the coding, format and clinical context of patient data. In addition, data may be omitted in some cases. CLINICAL DECISIONS SHOULD BE BASED ON THE PRIMARY CLINICAL RECORDS. [facility] [employer] provides no warranty or guarantee of the accuracy or completeness of information in this document.
[2023-10-16 09:03] LABS: Absolute Lymphocyte Count 1.32 X10^3/uL (0.83-4.51); Absolute Neutrophil Count 2.4 X10^3/uL (2.0-7.7); Basophil# 0.04 X10^3/uL; Basophil% 0.9 % (0-1); Eosinophil# 0.11 X10^3/uL; Eosinophils% 2.6 % (0-5); Hematocrit 44.3 % (40-54); Lymphocyte # 1.32 X10^3/ul (0.83-4.51); Lymphocyte % 30.7 % (19-41); Mean Corp Hgb Conc 33.9 g/dL (32-36); Mean Corpuscular Hgb 29.6 pg (27.0-32.0); Mean Corpuscular Volume 87.5 fL (80-94); Mean Platelet Vol. 8.9 fl (6.2-12.0); Monocyte# 0.41 X10^3/uL; Monocyte% 9.5 % (0-10); NRBC Flagged by Analyzer 0 % (0-5); Neutrophil # 2.41 X10^3/uL (2.7-7.7); Neutrophil % 56.1 % (47-70); Platelet Count 210 K/mm3 (150-450); RBC Distribution Width CV 13.1 % (11.6-14.6); RBC Distribution Width SD 41.9 fl (35.1-43.9); Red Blood Count 5.06 M/mm3 (4.6-6.2); White Blood Count 4.3 K/mm3 (4.4-11.0)
[2023-10-16 10:46] LABS: Albumin, Serum 3.6 g/dL (3.2-5.0); Anion Gap 3 (5-15); BUN 18 mg/dL (7-18); BUN/Creat Ratio 19.5 RATIO (10-20); Calcium,Total 9.2 mg/dL (8.5-10.1); Chloride 108 mmol/L (98-107); Creatinine, Serum 0.92 mg/dL (0.70-1.30); EST Glomerular Filtration Rate 88 mL/min (>60); Est Glom Filt Rate - Afr Amer 107 mL/min (>60); Glucose 110 mg/dL (74-106); Potassium 4.1 mmol/L (3.5-5.1); Sodium Level 141 mmol/L (136-145)
== END | disposition home or self-care (01) ==
LOC: CT 08:15
PROVIDERS: PCP Family Medicine; Referring Provider Specialist; Visit Provider Specialist
DX: Z01.810 Encounter for preprocedural cardiovascular examination (principal); M17.11 Unilateral primary osteoarthritis, right knee; M25.561 Pain in right knee; M21.161 Varus deformity, not elsewhere classified, right knee
CPT/HCPCS: 36415; 73700; 80048; 82040; 85025; 93005

== ENCOUNTER → 2024-01-18 | Outpatient (CLI) | payer OTHER, SELFPAY ==
[2024-01-18 07:56] LABS: Absolute Lymphocyte Count 2.49 X10^3/uL (0.83-4.51); Absolute Neutrophil Count 2.3 X10^3/uL (2.0-7.7); Basophil# 0.06 X10^3/uL; Eosinophil# 0.28 X10^3/uL; Eosinophils% 4.8 % (0-5); Hematocrit 45.8 % (40-54); Hemoglobin 14.9 g/dL (13.0-16.5); Lymphocyte # 2.49 X10^3/ul (0.83-4.51); Lymphocyte % 43.1 % (19-41); Mean Corp Hgb Conc 32.5 g/dL (32-36); Mean Corpuscular Hgb 29.3 pg (27.0-32.0); Mean Corpuscular Volume 90.2 fL (80-94); Mean Platelet Vol. 9.5 fl (6.2-12.0); Monocyte% 10.4 % (0-10); NRBC Flagged by Analyzer 0 % (0-5); Neutrophil # 2.34 X10^3/uL (2.7-7.7); Neutrophil % 40.5 % (47-70); Platelet Count 230 K/mm3 (150-450); RBC Distribution Width CV 12.8 % (11.6-14.6); RBC Distribution Width SD 42.5 fl (35.1-43.9); Red Blood Count 5.08 M/mm3 (4.6-6.2); White Blood Count 5.8 K/mm3 (4.4-11.0)
[2024-01-18 08:35] LABS: Albumin, Serum 3.5 g/dL (3.2-5.0); Anion Gap 5 (5-15); BUN 21 mg/dL (7-18); BUN/Creat Ratio 25.5 RATIO (10-20); Calcium,Total 8.9 mg/dL (8.5-10.1); Chloride 105 mmol/L (98-107); Creatinine, Serum 0.82 mg/dL (0.70-1.30); EST Glomerular Filtration Rate 101 mL/min (>60); Est Glom Filt Rate - Afr Amer 122 mL/min (>60); Glucose 107 mg/dL (74-106); Sodium Level 138 mmol/L (136-145)
== END | disposition home or self-care (01) ==
LOC: LAB 06:06
PROVIDERS: PCP Family Medicine; Referring Provider Specialist; Visit Provider Specialist
DX: Z01.810 Encounter for preprocedural cardiovascular examination (principal); Z01.818 Encounter for other preprocedural examination
CPT/HCPCS: 36415; 80048; 82040; 85025

== ENCOUNTER → 2024-05-26 | Outpatient (CLI) | payer OTHER, SELFPAY ==
--- NOTE | 2024-05-26 17:12 | RAD_ITS ---
STUDY: X-RAY - PELVIS AND LEFT HIP REASON FOR EXAM: Male, 63 years old. LEFT HIP PAIN TECHNIQUE: 3 views of the pelvis and left hip. COMPARISON: None. FINDINGS: There is a non-specific bowel gas pattern. Normal visualized soft tissue structures. Normal bilateral iliac wings, sacroiliac joints and visualized sacrum. Normal bilateral superior and inferior pubic rami. Normal pubic symphysis. Normal bilateral ischial tuberosities. Normal visualized femoral head. Normal acetabulum. Normal hip joint. There is no demonstrated acute fracture. RAD/HIP, UNI W/ Pelvis 2-3 Views IMPRESSION: Unremarkable x-ray examination of the pelvis and left hip. Electronically Signed: Med Rizo MD at 10:23 EDT ,
== END | disposition home or self-care (01) ==
PROVIDERS: PCP Family Medicine; Referring Provider Family Medicine; Visit Provider Family Medicine
DX: M25.552 Pain in left hip (principal)
CPT/HCPCS: 73502

== ENCOUNTER → 2025-03-17 | Outpatient (CLI) | payer OTHER, SELFPAY ==
[2025-03-17 13:22] LABS: Anion Gap 11 (5-15); BUN 21 mg/dL (4-19); BUN/Creat Ratio 23.3 RATIO (10-20); Calcium,Total 9.8 mg/dL (7.6-11.0); Carbon Dioxide 25.1 mmol/L (21.0-32.0); Chloride 102 mmol/L (98-108); Creatinine, Urine (random) 112.00 mg/dL (39.00-259.00); Glucose 97 mg/dL (70-99); Microalbumin,Random Urine < 12.0 mg/L (NO RANGE EST.); PSA,Total - Annual Screen 4.14 ng/mL (0.02-4.00); Potassium 5.3 mmol/L (3.3-5.1)
== END | disposition home or self-care (01) ==
LOC: MFPLAB 10:46
PROVIDERS: PCP Family Medicine; Referring Provider Family Medicine; Visit Provider Family Medicine
DX: I10 Essential (primary) hypertension (principal); Z12.5 Encounter for screening for malignant neoplasm of prostate
CPT/HCPCS: 36415; 80048; 82043; 82570; 84153; G0103